=== PATIENT | male | born 1985 | race Two or more races ===

== ENCOUNTER 2019-11-30 14:37 | Emergency (ER) | payer OTHER ==
[~2019-11-30] VITALS: Ht 170.2 cm; Wt 72.6 kg
== END 2019-11-30 16:28 | disposition home or self-care (01) ==
LOC: EDBD 14:37 → ER 14:37
DX: R03.0 Elevated blood-pressure reading, without diagnosis of hypertension (principal); F41.8 Other specified anxiety disorders